=== PATIENT | male | born 1955 | race Caucasian/White ===

== ENCOUNTER 2020-02-22 17:50 | Emergency (ER) | payer OTHER | END 2020-02-22 19:19 | disposition home or self-care (01) | LOC: JVIRT 17:50 | DX: Z03.818 Encounter for observation for suspected exposure to other biological agents ruled out (principal) | CPT/HCPCS: C9803; G2012-GT; Q3014-GT; U0003 ==

== ENCOUNTER 2021-04-15 11:45 | Observation (INO) | payer OTHER ==
[2021-04-15] MEDS ORDERED: ASPIRIN 325 MG TABLET PO ONE (12:20)
[2021-04-15 12:27] VITALS: BMI 38.7
[2021-04-15] MEDS ORDERED: ASPIRIN 325 MG ENTERIC COATED TABLET (FP) ONE (12:57)
[2021-04-15 13:33] LABS: BASO % 0.8 % (0-2.0); EOS % 1.8 % (0-4.5); HEMATOCRIT 44.9 % (35.4-49); HEMOGLOBIN 14.6 GM/dL (11.7-16.9); LYMPH % 32.7 % (8-40); MCHC 32.6 g/dl (32.0-35.9); MEAN CELL VOLUME 85.8 fl (80-96); MEAN PLT VOLUME 9.3 fl (7.5-11.1); MONO % 5.7 % (3.8-10.2); PLATELET COUNT 135 10^3/uL (134-434); RBC 5.23 M/mm3 (4.00-5.60); WHITE BLOOD COUNT 4.9 K/mm3 (4.0-10.0)
[2021-04-15 13:40] LABS: INR 1.02 (0.83-1.09); PROTHROMBIN TIME (PATIENT) 11.7 SEC (9.7-13.0)
[2021-04-15 13:43] LABS: ACTIVATED PTT 29.5 SECONDS (25.2-36.5)
[2021-04-15 13:52] LABS: ALBUMIN 3.9 g/dl (3.4-5.0)
[2021-04-15 13:53] LABS: BLOOD UREA NITROGEN 24.4 mg/dL (7-18)
[2021-04-15 13:56] LABS: CREATININE 0.9 mg/dL (0.55-1.3)
[2021-04-15 13:58] LABS: BILIRUBIN,TOTAL 0.5 mg/dL (0.2-1); TOT PROT 7.4 g/dl (6.4-8.2)
[2021-04-15] MEDS ORDERED: ACETAMINOPHEN 325 MG TABLET (FP) PO PRN (14:07)
[2021-04-15] MEDS ORDERED: metFORMIN HCL 500 MG TABLET (FP) PO SCH (16:30)
[2021-04-15] MEDS ORDERED: ALBUTEROL SO4 2.5/IPRATROPIUM 0.5 INH SOL 3 ML VIAL.NEB. NEB SCH (20:00)
[2021-04-15] MEDS ORDERED: INSULIN (LEVEMIR) 100 UNITS/ML UNITS SQ SCH (22:00)
[2021-04-15] MEDS ORDERED: ATORVASTATIN CA 80 MG TABLET (FP) PO SCH (22:00)
[2021-04-15 22:33] LABS: CHOLESTEROL 256 mg/dL (50-200); TRIGLYCERIDES 161 mg/dL (0-150)
[2021-04-15 22:34] LABS: LDL CHOLESTEROL (ONLY SJRH) 179 mg/dL (5-100)
[2021-04-15 22:36] LABS: HDL CHOLESTEROL 35 mg/dL (40-60)
[2021-04-15 23:13] LABS: URINE APPEARANCE CLEAR; URINE BILIRUBIN NEGATIVE (NEGATIVE); URINE COLOR YELLOW; URINE GLUCOSE (UA) 3+ (NEGATIVE); URINE KETONE 1+ (NEGATIVE); URINE LEUK ESTERASE NEGATIVE (NEGATIVE); URINE NITRITE NEGATIVE (NEGATIVE); URINE PROTEIN NEGATIVE (NEGATIVE)
[2021-04-16] MEDS ORDERED: sitaGLIPtin PHOSPHATE 50 MG TABLET PO SCH (07:00)
[2021-04-16] MEDS ORDERED: metoPROLOL SUCCINATE 25 MG TAB.SR.24H (FP) ONE (07:50)
[2021-04-16] MEDS ORDERED: ASPIRIN 81 MG CHEWABLE TABLETS ONE (07:50)
[2021-04-16] MEDS ORDERED: LOSARTAN POTASSIUM 50 MG TABLET ONE (07:50)
[2021-04-16] MEDS ORDERED: sitaGLIPtin PHOSPHATE 50 MG TABLET ONE (07:50)
[2021-04-16 07:55] VITALS: TEMP 97.9
[2021-04-16] MEDS ORDERED: REGADENOSON 0.4 MG/5 ML PRE-FILLED SYRINGE IVPUSH ONE ×2 (09:53→10:00)
[2021-04-16] MEDS ORDERED: ASPIRIN 81 MG CHEWABLE TABLETS PO SCH (10:00)
[2021-04-16] MEDS ORDERED: LOSARTAN POTASSIUM 50 MG TABLET PO SCH (10:00)
[2021-04-16] MEDS ORDERED: EZETIMIBE 10 MG TABLET (FP) PO SCH (10:00)
[2021-04-16] MEDS ORDERED: metoPROLOL SUCCINATE 25 MG TAB.SR.24H (FP) PO SCH (10:00)
[2021-04-16 13:28] VITALS: BP 139/83; PULSE 87
== END 2021-04-16 13:35 | disposition home or self-care (01) ==
LOC: JER 11:45 → JERBED 14:35
PROVIDERS: ADMIT Family Medicine; ATTEND Family Medicine
PROC: 3E033GC Introduction of Other Therapeutic Substance into Peripheral Vein, Percutaneous Approach (ICD-10-PCS; principal; 2021-04-15)
DX: I10 Essential (primary) hypertension (principal); E11.9 Type 2 diabetes mellitus without complications; Z95.5 Presence of coronary angioplasty implant and graft; R07.9 Chest pain, unspecified; J45.909 Unspecified asthma, uncomplicated; E78.00 Pure hypercholesterolemia, unspecified; Z91.14 Patient's other noncompliance with medication regimen; I25.10 Atherosclerotic heart disease of native coronary artery without angina pectoris; I11.9 Hypertensive heart disease without heart failure; E66.9 Obesity, unspecified; Z68.38 Body mass index [BMI] 38.0-38.9, adult; Z87.891 Personal history of nicotine dependence; Z95.2 Presence of prosthetic heart valve
CPT/HCPCS: 36415; 71045-TC-FY; 78452-TC; 80053; 80061; 81003; 83036; 84443; 84484; 85025; 85610; 85730; 93005; 93010; 93017; 93306-TC; 93880-TC; 96374; 99285-25; A9502; C9803; G0378; J2785; U0003; U0005